=== PATIENT | female | born 1995 | race Two or more races ===

== ENCOUNTER 2021-05-18 06:29 | Emergency (ER) | payer SELFPAY ==
[2021-05-18 08:14] LABS: Bilirubin Negative (Negative); Blood, Urine Negative (Negative); Clarity Clear (Clear); Glucose, Urine (Dipstick) Normal (Negative); Ketone, Urine Negative (Negative); Leukocyte Negative Leu/uL (Negative); Nitrite Negative (Negative); Protein, Urine (Dipstick) Negative (Neg-Trace); Specific Gravity, Urine 1.026 (1.002-1.036); Urobilinogen Normal mg/dL (Less than 2); pH, Urine 5.5 (5.0-9.0)
[2021-05-18] MEDS ORDERED: Lidocaine 1% (PF) 30 ML VIAL ONE (08:26)
[2021-05-18] MEDS ORDERED: cefTRIAXone\\ROCEPHIN 250 MG VIAL ONE (08:26)
[2021-05-18] MEDS ORDERED: Azithromycin 250 MG TAB ONE (08:26)
[2021-05-19 20:00] LABS: Chlam.trachomatis by PCR,Urine Not Detected (NotDetected)
== END 2021-05-18 08:52 | disposition home or self-care (01) ==
LOC: ERS 06:29
DX: H66.91 Otitis media, unspecified, right ear (principal); K13.79 Other lesions of oral mucosa; N89.8 Other specified noninflammatory disorders of vagina; F17.210 Nicotine dependence, cigarettes, uncomplicated
CPT/HCPCS: 81003; 87491; 87591; 96372; 99283; J0696; J2001

== ENCOUNTER 2021-05-20 18:52 | Emergency (ER) | payer SELFPAY ==
[2021-05-20] MEDS ORDERED: Acetaminophen 500 MG TAB ONE (19:43)
[2021-05-20] MEDS ORDERED: Ondansetron ODT 4 MG TAB ONE (19:43)
[2021-05-20 19:58] LABS: Bilirubin Negative (Negative); Blood, Urine Negative (Negative); Clarity Clear (Clear); Glucose, Urine (Dipstick) Normal (Negative); Ketone, Urine Trace mg/dL (Negative); Leukocyte Negative Leu/uL (Negative); Nitrite Negative (Negative); Protein, Urine (Dipstick) Negative (Neg-Trace); Specific Gravity, Urine 1.017 (1.002-1.036); Urobilinogen Normal mg/dL (Less than 2)
[2021-05-20 20:06] LABS: Amphetamine Not Detected (NotDetected); Barbiturates Screen Not Detected (NotDetected); Benzodiazepine Screen Not Detected (NotDetected); Cocaine Metabolite Screen Not Detected (NotDetected); Methadone Not Detected (NotDetected); Methamphetamine Not Detected (NotDetected); Opiate Screen Not Detected (NotDetected); Oxycodone Screen Not Detected (NotDetected); Phencyclidine (PCP) Not Detected (NotDetected); THC/Cannabinoid Screen Not Detected (NotDetected); Tricyclic Screen Not Detected (NotDetected)
[2021-05-20] MEDS ORDERED: Metoclopramide HCl 10 MG TAB ONE (21:02)
[2021-05-21 15:01] LABS: SARS-CoV-2 PCR by NAA DETECTED (NotDetected)
== END 2021-05-20 22:35 | disposition home or self-care (01) ==
LOC: ERS 18:52
DX: U07.1 COVID-19 (principal); F17.210 Nicotine dependence, cigarettes, uncomplicated
CPT/HCPCS: 80306; 81003; 99284; Q0162; U0003; U0005